=== PATIENT | female | born 1975 | race Two or more races ===

== ENCOUNTER 2018-07-28 10:00 | Day surgery (SDC) | payer OTHER ==
[2018-07-28] MEDS ORDERED: NEXIUM 24HR20 MG PO (15:18)
== END 2018-07-28 16:30 | disposition home or self-care (01) ==
LOC: AMB-ENDOS 10:00
DX: D13.1 Benign neoplasm of stomach (principal)

== ENCOUNTER 2018-08-01 10:01 | Outpatient (CLI) | payer OTHER ==
[~2018-08-01 10:01] MED LIST: NEXIUM 24HR20 MG PO
== END 2018-08-01 10:27 | disposition home or self-care (01) ==
LOC: RX STUDY 10:01
DX: R10.13 Epigastric pain (principal); K21.9 Gastro-esophageal reflux disease without esophagitis